=== PATIENT | female | born 1950 | race Caucasian/White ===

== ENCOUNTER → 2016-10-19 | Outpatient (CLI) | payer MEDICAID ==
--- NOTE | 2016-10-19 14:21 | MA ---
Screening Digital Mammogram With iCAD Analysis Clinical Indications: Routine screening. Her mother was diagnosed with breast cancer in her 80s. Technique: Standard cephalocaudal projections are obtained. Digital breast tomosynthesis was performe d in the MLO projection with reconstruction at 1.0 mm slice thickness and composite MLO views reconst ructed. This examination is processed by the iCAD computer aided detection system. Comparison: September 2015, September 2014, September 2013, August 2012, August 2011, July 2010, juan [email or web address]. Breast density: Type B; Scattered fibroglandular densities. Findings: CAD was reviewed. No spiculated masses, suspicious calcifications or secondary signs of mal ignancy are seen. There has been no significant change in the appearance of either breast. Impression: Negative mammogram. BI-RADS 1. Recommendation: Routine mammographic screening in one year as long as physical [facility]. Negative mammography should not preclude additional workup of a clinically suspicious finding. The patient's information is entered into a reminder system with a target due date for her next mammo gram.
== END ==
LOC: FIMAGING 11:18
DX: Z12.31 Encounter for screening mammogram for malignant neoplasm of breast (principal); Z80.3 Family history of malignant neoplasm of breast
CPT/HCPCS: G0202

== ENCOUNTER → 2017-10-20 | Outpatient (CLI) | payer OTHER, MEDICAID | LOC: FIMAGING 12:31 | PROVIDERS: ATTEND Family Medicine | DX: Z12.31 Encounter for screening mammogram for malignant neoplasm of breast (principal); Z80.3 Family history of malignant neoplasm of breast ==

== ENCOUNTER 2017-11-29 09:53 | Observation (INO) | payer OTHER, MEDICAID ==
[2017-11-29] MEDS ORDERED: DILTIAZEM 25 MG/5 ML VIAL IVP ONE (10:20)
[2017-11-29 10:26] LABS: PLATELET COUNT 274 10^3/uL (150-400)
--- NOTE | 2017-11-29 10:45 | EDPHY ---
H & P Smoking Status: Never smoked Time Seen by Provider: 11/29/17 10:09 HPI/ROS: CHIEF COMPLAINT: Cough, weakness HISTORY OF PRESENT ILLNESS: 67-year-old female presents to the emergency department with cough and weakness for the last 5 days. Patient states that she started with cough a few days ago and was progressively getting worse. She was feeling more weak. She does feel short of breath. She denies pain in her chest. Specifically she denies pleuritic chest pain. She denies neck or back pain. Denies abdominal pain or vomiting. She has had pneumonia treated as an outpatient several years ago. She did not receive a flu shot this year. REVIEW OF SYSTEMS: Constitutional: No fever, no chills. Eyes: No double or blurry vision. ENT: No sore throat. Respiratory: Cough, shortness of breath Cardiac: No chest pain. Gastrointestinal: No abdominal pain, vomiting or diarrhea. Genitourinary: No dysuria. Musculoskeletal: No neck or back pain. Skin: No rashes. Neurological: No headache. (Shauna Hughes) Past Medical/Surgical History: Bipolar, hypothyroidism, high cholesterol (Shauna Hughes) Social History: (Shauna Hughes) Physical Exam: General Appearance: Alert, no distress. 91% on room air. 155/91, 37.4 temp Eyes: Pupils equal and round. Extraocular motions are all intact. ENT: Mouth: Mucous membranes moist. Respiratory: Occasional rhonchi upper lobes bilaterally. Decreased breath sounds in the bases specially decreased breath sounds in the right base compared to the left. No respiratory distress. No retractions. Speaking in full sentences. Cardiovascular: Regular rate and rhythm. Gastrointestinal: Abdomen is soft and nontender, no masses, no rebound or guarding, bowel sounds normal. Neurological: Alert and oriented x 3, cranial nerves II through XII grossly intact Skin: Warm and dry, no rashes. Musculoskeletal: Nontender to palpate along the cervical, thoracic or lumbar spine. Neck is supple. Extremities: Full range of motion and no peripheral edema. Psychiatric: Patient is oriented X 3, there is no agitation. (Shauna Hughes) Constitutional: Initial Vital Signs Temperature (C) 37.3 C 11/29/17 09:55 Heart Rate 99 11/29/17 09:55 Respiratory Rate 18 11/29/17 09:55 Blood Pressure 155/91 H 11/29/17 09:55 O2 Sat (%) 91 L 11/29/17 09:55 O2 Delivery Mode Room Air Allergies/Adverse Reactions: No Known Allergies Allergy (Verified 11/29/17 09:54) Home Medications: Medication Instructions Recorded LORazepam [Ativan (*)] 0.5 mg PO HS PRN 11/29/17 Levothyroxine [Synthroid 88 mcg 88 mcg PO DAILY06 11/29/17 (*)] Perphenazine 4 mg PO DAILY 11/29/17 QUEtiapine FUMARATE [Seroquel 300 mg PO HS 11/29/17 300mg (*)] Suvorexant [Belsomra] 10 mg PO HS 11/29/17 Acetaminophen [Tylenol 325mg (*)] 650 mg PO Q4HRS PRN tab 11/30/17 Albuterol [Proventil Inhaler HFA 2 puffs IH Q4 PRN #1 mdi 11/30/17 (*)] Cetirizine [ZyrTEC 10 mg (*)] 10 mg PO HS #10 tab 11/30/17 Codeine Phosphate/Guaifenesin 10 ml PO Q4 PRN #200 ml 11/30/17 [Guaifen-Codeine 200-20 mg/10Ml] guaiFENesin [Mucinex 600 MG (*)] 1,200 mg PO BID #20 tab.er 11/30/17 Medical Decision Making - Diagnostics Imaging: I viewed and interpreted images myself - Diagnostics EKG Interpretation: EKG: Complete interpretation has been separately recorded in the [employer] archive. Summary impression: Sinus tachycardia, rate 100 (Suraj Londono) ED Course/Re-evaluation: 67-year-old female presents to the emergency department feeling short of breath. She had an outpatient chest x-ray which revealed evidence of likely pneumonia. She requires supplemental oxygen. She had blood cultures drawn. She had a normal lactate. The patient does take Seroquel for her history of bipolar. She had a normal EKG with no evidence of QT prolongation. She was started on Levaquin IV. She will be admitted to the hospitalist. Patient was also seen examined by Dr. Londono, secondary supervising physician. ( Shauna Hughes) Differential Diagnosis: Shortness of breath including but not limited to pulmonary infectious process, COPD, asthma, pulmonary embolus and congestive heart failure. (Shauna Hughes) Other Provider: Independent physician evaluation: I evaluated and participated in the management of the patient. I also evaluated the patient independently. My co-signature indicates that I have reviewed this chart and I agree with the findings and plan of care as documented. My personal H&P findings include: The patient presents to the ED with cough, dyspnea and hypoxemia which began on . The patient reported a subjective fever. She denies any recent antibiotic use. She denies travel outside the [place]. She denies pleuritic chest pain or asymmetric calf pain or swelling. The patient was seen in urgent care and had a chest x-ray which demonstrated pneumonia. She was sent to the ED secondary to her hypoxemia. Physician physical exam: General Appearance: Alert, no distress Eyes: Pupils equal and round no pallor or injection ENT, Mouth: Mucous membranes moist Respiratory: Tachypnea, rhonchorous breath sounds bilateral lung bases Cardiovascular: Tachycardic Gastrointestinal: Abdomen is soft and nontender, no masses, bowel sounds normal Neurological: A&O, normal motor function, normal sensory exam, normal cranial nerves Skin: Warm and dry, no rashes Musculoskeletal: Neck is supple nontender Extremities: symmetrical, full range of motion ED course: I reviewed the patient's chest x-ray. She does have clinical and radiographic evidence of pneumonia. Blood cultures x2 obtained. The patient will be started on IV antibiotics. She will be admitted to the hospital in a setting of her hypoxemia and tachypnea. (Suraj Londono) - Data Points Laboratory Results: Laboratory Results 11/29/17 10:15 11/29/17 10:15 Microbiology Results: MICROBIOLOGY 11/29/17 10:41 Nasal, Sinus - Swab Respiratory Panel (PCR) - Final Human Metapneumovirus Medications Given: Discontinued Medications Acetaminophen (Tylenol) 650 mg PO Q4HRS PRN PRN Reason: Pain, Mild/Fever, Can Take PO Stop: 05/28/18 13:02 Last Admin: 11/29/17 19:20 Dose: 650 mg Albuterol/Ipratropium (Duoneb) 3 ml IH Q6HRS MEHDI Stop: 05/29/18 12:04 Last Admin: 11/30/17 12:27 Dose: 3 ml Cetirizine HCl (Zyrtec) 10 mg PO HS MEHDI Stop: 05/28/18 20:59 Last Admin: 11/29/17 21:58 Dose: 10 mg Diltiazem HCl (Cardizem 25 Mg/5 Ml Vial) 20 mg IVP EDNOW ONE Stop: 11/29/17 10:21 Last Admin: 11/29/17 10:37 Dose: Not Given Enoxaparin Sodium (Lovenox) 40 mg SC DAILY MEHDI Stop: 05/29/18 08:59 Last Admin: 11/30/17 08:49 Dose: 40 mg Guaifenesin (Mucinex) 1,200 mg PO BID MEHDI Stop: 05/28/18 13:59 Last Admin: 11/30/17 08:49 Dose: 1,200 mg Guaifenesin/Codeine Phosphate (Robitussin Ac) 10 ml PO Q6HRS PRN PRN Reason: Cough, Moderate Stop: 05/28/18 13:56 Last Admin: 11/30/17 01:21 Dose: 10 ml Levofloxacin/Dextrose (Levaquin 750 Mg (Premix)) 150 mls @ 100 mls/hr IV EDNOW ONE PRN Reason: Protocol Stop: 11/29/17 13:21 Last Admin: 11/29/17 12:12 Dose: 150 mls Sodium Chloride (Ns) 1,000 mls @ 0 mls/hr IV ONCE ONE PRN Reason: Wide Open Stop: 11/29/17 14:20 Last Admin: 11/29/17 15:05 Dose: 1,000 mls Levothyroxine Sodium (Synthroid) 88 mcg PO DAILY06 [facility] Stop: 05/29/18 05:59 Last Admin: 11/30/17 05:29 Dose: 88 mcg Miscellaneous Medication (Suvorexant [Belsomra]) 10 mg PO HS MEHDI Stop: 05/28/18 20:59 Last Admin: 11/29/17 21:57 Dose: 10 mg Oxycodone HCl (Oxycodone Ir) 2.5 - 5 mg PO Q4HRS PRN PRN Reason: Pain, Severe Able to Take PO Stop: 12/09/17 13:57 Last Admin: 11/29/17 21:57 Dose: 5 mg Perphenazine (Trilafon) 4 mg PO DAILY MEHDI Stop: 05/29/18 08:59 Last Admin: 11/30/17 08:50 Dose: 4 mg Quetiapine Fumarate (Seroquel) 300 mg PO [facility] Stop: 05/28/18 20:59 Last Admin: 11/29/17 21:58 Dose: 300 mg Departure - Departure Disposition: [facility] In[facility] Acute Clinical Impression: Pneumonia Qualifiers: Pneumonia type: due to unspecified organism Laterality: bilateral Lung location : lower lobe of lung Qualified Code(s): J18.9 - Pneumonia, unspecified organism Dyspnea Qualifiers: Dyspnea type: unspecified Qualified Code(s): R06.00 - Dyspnea, unspecified Condition: Fair
--- NOTE | 2017-11-29 11:20 | CPEKG ---
Heart Rate: 100 RR Interval: 600 P-R Interval: 172 QRSD Interval: 66 QT Interval: 356 QTC Interval: 460 P Mcgregor: 57 QRS Mcgregor: 39 T Wave Mcgregor: 56 EKG Severity - OTHERWISE NORMAL ECG - EKG Impression: SINUS TACHYCARDIA Electronically Signed By: Suraj Londono 29-Nov-2017 11:53:11
[2017-11-29] MEDS ORDERED: ONDANSETRON 4 MG/2 ML VIAL IVP PRN (13:03)
[2017-11-29] MEDS ORDERED: ONDANSETRON DISINTEGRATING 4 MG TAB PO PRN (13:03)
[2017-11-29] MEDS ORDERED: ALBUTEROL 3 ML DEYVIAL IH PRN (13:03)
[2017-11-29] MEDS: ACETAMINOPHEN 325 MG TAB PO PRN ×2 (13:25→19:20)
[2017-11-29] MEDS ORDERED: LORazepam 0.5 MG TAB PO PRN (13:57)
[2017-11-29] MEDS ORDERED: BENZONATATE 100 MG CAP PO PRN (13:57)
[2017-11-29] MEDS ORDERED: NS 1,000 ML IV ONE (14:19)
[2017-11-29] MEDS: guaiFENesin 600 MG TAB.ER PO SCH ×2 (15:04→21:58)
[2017-11-29] MEDS: oxyCODONE IR 5 MG TAB PO PRN ×2 (16:09→21:57)
--- NOTE | 2017-11-29 17:15 | PDGENHP ---
History and Physical - Chief Complaint Acute cough - History of Present Illness Primary care provider: Dr. Dunn HPI: 67-year-old female presents with acute cough characterized as productive of clear sputum with associated sinus congestion, shortness of breath, pain in her chest located in the anterior chest, exacerbated by coughing. She reports the onset of symptoms was 3 days ago, and duration has been persistent worsening thereafter. Prior to her onset of symptoms, the patient otherwise been feeling well. She reports that she is normally an active person, ambulates and walks her dogs without any recent reduction in exercise tolerance , no anginal chest discomfort or shortness of breath. She reports that she has been taking [id number] medications in an attempt to alleviate the symptoms , and Delsym seems to provide some relief. History Information - Allergies/Home Medication List Allergies/Adverse Reactions: No Known Allergies Allergy (Verified 11/29/17 09:54) Home Medications: LORazepam [Ativan (*)] 0.5 mg PO HS PRN 11/29/17 [Last Taken 11/28/17] Levothyroxine [Synthroid 88 mcg (*)] 88 mcg PO DAILY06 11/29/17 [Last Taken 02/11] Perphenazine 4 mg PO DAILY 11/29/17 [Last Taken 11/29/17] QUEtiapine FUMARATE [Seroquel 300mg (*)] 300 mg PO HS 11/29/17 [Last Taken 11/28] Suvorexant [Belsomra] 10 mg PO HS 11/29/17 [Last Taken 11/28/17] I have personally reviewed and updated: family history, medical history, social history, surgical history - Past Medical History Additional medical history: Recurrent cystitis. Bipolar with history of numerous ECT treatments. Hypothyroidism. Hyperlipidemia - Surgical History Reports: no pertinent surgical hx - Family History Additional family history: Sister with fatal pulmonary embolism, mother with breast cancer, father with congestive heart failure in his 80s - Social History Smoking Status: Never smoked Alcohol Use: Sober Drug Use: None, Marijuana Additional social history: Independent in her ADLs comma no recent reduction in exercise tolerance, recently return from a trip to [place] 2 weeks ago Review of Systems Review of Systems: ROS: 10pt was reviewed & negative except for what was stated in HPI & below Constitutional: Reports: malaise EENMT: Reports: nose congestion, other (Conjunctivitis 2 weeks ago) Cardiac: Reports: chest pain (Anterior chest) Respiratory: Reports: cough, shortness of breath Physical Exam Physical Exam: Temp Pulse Resp BP Pulse Ox 36.5 C 104 H 20 148/95 H 94 11/29/17 15:52 11/29/17 15:52 11/29/17 15:52 11/29/17 15:52 11/29/17 15:52 O2 (L/minute) 1 Constitutional: appears nourished, not in pain, obese, uncomfortable Eyes: PERRL, anicteric sclera, EOMI Ears, Nose, Mouth, Throat: moist mucous membranes, hearing normal, ears appear normal, no oral mucosal ulcers Cardiovascular: tachycardia, No systolic murmur, No irregularly irregular, No edema Respiratory: inspiratory crackles (Bilateral bases), other (Cough easily triggered), No reduced air movement, No expiratory wheeze, No bronchial breath sounds, No respiratory distress Gastrointestinal: normoactive bowel sounds, soft, non-tender abdomen, no palpable masses, No distension Skin: No abrasion (On the anterior chest), No rash Neurologic: AAOx3, sensation intact bilaterally, No weakness Psychiatric: interacting appropriately, not anxious, not encephalopathic, thought process linear Lymph, Heme, Immunologic: other (Palpable, nontender 1 cm bilateral submandibular lymph nodes, no anterior posterior cervical lymphadenopathy) Lab Data & Imaging Review 11/29/17 10:15 11/29/17 10:15 WBC 9.34 10^3/uL (3.80-9.50) 11/29/17 10:15 RBC 4.25 10^6/uL (4.18-5.33) 11/29/17 10:15 Hgb 13.0 g/dL (12.6-16.3) 11/29/17 10:15 Hct 38.8 % (38.0-47.0) 11/29/17 10:15 MCV 91.3 fL (81.5-99.8) 11/29/17 10:15 MCH 30.6 pg (27.9-34.1) 11/29/17 10:15 MCHC 33.5 g/dL (32.4-36.7) 11/29/17 10:15 RDW 13.2 % (11.5-15.2) 11/29/17 10:15 Plt Count 274 10^3/uL (150-400) 11/29/17 10:15 MPV 9.0 fL (8.7-11.7) 11/29/17 10:15 Neut % (Auto) 76.8 % (39.3-74.2) H 11/29/17 10:15 Lymph % (Auto) 12.2 % (15.0-45.0) L 11/29/17 10:15 [place] % (Auto) 7.1 % (4.5-13.0) 11/29/17 10:15 Eos % (Auto) 2.2 % (0.6-7.6) 11/29/17 10:15 Baso % (Auto) 0.7 % (0.3-1.7) 11/29/17 10:15 Nucleat RBC Rel Count 0.0 % (0.0-0.2) 11/29/17 10:15 Absolute Neuts (auto) 7.17 10^3/uL (1.70-6.50) H 11/29/17 10:15 Absolute Lymphs (auto) 1.14 10^3/uL (1.00-3.00) 11/29/17 10:15 Absolute Monos (auto) 0.66 10^3/uL (0.30-0.80) 11/29/17 10:15 Absolute Eos (auto) 0.21 10^3/uL (0.03-0.40) 11/29/17 10:15 Absolute Basos (auto) 0.07 10^3/uL (0.02-0.10) 11/29/17 10:15 Absolute Nucleated RBC 0.00 10^3/uL (0-0.01) 11/29/17 10:15 Immature Gran % 1.0 % (0.0-1.1) 11/29/17 10:15 Immature Gran # 0.09 10^3/uL (0.00-0.10) 11/29/17 10:15 D-Dimer 0.60 ug/mLFEU (0.00-0.50) H 11/29/17 14:54 VBG Lactic Acid 0.8 mmol/L (0.7-2.1) 11/29/17 11:25 Sodium 139 mEq/L (135-145) 11/29/17 10:15 Potassium 3.8 mEq/L (3.5-5.2) 11/29/17 10:15 Chloride 102 mEq/L (97-110) 11/29/17 10:15 Carbon Dioxide 25 mEq/l (22-31) 11/29/17 10:15 Anion Gap 12 mEq/L (8-16) 11/29/17 10:15 BUN 12 mg/dL (7-23) 11/29/17 10:15 Creatinine 0.7 mg/dL (0.6-1.0) 11/29/17 10:15 Estimated GFR > 60 11/29/17 10:15 Glucose 108 mg/dL (70-100) H 11/29/17 10:15 Calcium 9.3 mg/dL (8.5-10.4) 11/29/17 10:15 Troponin I < 0.012 ng/mL (0.000-0.034) 11/29/17 14:25 NT-Pro-B Natriuret Pep 169 pg/mL (0-125) H 11/29/17 14:25 Visualized and Interpreted Chest x-ray results: Yes Chest X-Ray results: other (Bibasilar inferior airspace disease) Visualized and Interpreted EKG results: Yes EKG Interpretation: Positive for: other (Sinus tachycardia) Assessment & Plan Assessment: 67-year-old female presenting with acute metapneumovirus viral pneumonia Plan: 1. Metapneumovirus viral pneumonia. Acute, new problem this provider, further workup indicated. Present on admission, the etiology of the patient's presenting symptoms are most likely secondary to this unifying diagnosis and should respond to supportive care -that being said, the patient's ongoing tachycardia, strong family history of venous thromboembolism, and recent travel, warrant pulmonary embolism rule out and will get a D-dimer at this time, if it is negative for age adjustment, we will not pursue further imaging -supportive care with mucolytics, antiemetics, antihistamine, bronchodilator therapy, antitussives -discussed with Shauna Lance, emergency department provider, she reports to me the patient has received levofloxacin, given that the respiratory viral panel has demonstrated human metapneumovirus, there is no indication for ongoing antibiotics -continue monitor pulmonary exam, as human metapneumovirus can cause extensive bilateral pneumonia, the patient does have evidence of bilateral lower lobe infiltrates on chest x-ray, monitor oxygen requirements overnight and reassess whether the patient is safe for discharge home without supplemental oxygen tomorrow 2. Hypothyroidism. Continue home medication 3. Bipolar disease. Reviewed outside records including 06/26/[address] Antelmo Grove, reports patient's past medical history as well as her need for ECT therapy -continue home medications Diet. Regular Prophylaxis. High risk patient, Lovenox 40 Code. Full Disposition. Anticipated discharge is 11/30, pending stabilization of conditions outlined above.
[2017-11-29] MEDS: guaiFENesin/CODEINE PHOS 10 ML UDCUP PO PRN (19:20)
[2017-11-29] MEDS ORDERED: CETIRIZINE 10 MG TAB PO SCH (21:00)
[2017-11-29] MEDS ORDERED: Suvorexant [Belsomra] 10 MG PO SCH (21:00)
[2017-11-29] MEDS ORDERED: QUEtiapine FUMARATE 300 MG TAB PO SCH (21:00)
[2017-11-30] MEDS: guaiFENesin/CODEINE PHOS 10 ML UDCUP PO PRN (01:21)
[2017-11-30] MEDS ORDERED: PERPHENAZINE 8 MG TAB ONE (05:25)
[2017-11-30] MEDS: PERPHENAZINE 8 MG TAB PO SCH ×2 (05:30→08:50)
[2017-11-30 05:43] LABS: PLATELET COUNT 273 10^3/uL (150-400)
[2017-11-30] MEDS ORDERED: LEVOTHYROXINE 88 MCG TAB PO SCH (06:00)
[2017-11-30] MEDS: guaiFENesin 600 MG TAB.ER PO SCH (08:49)
[2017-11-30] MEDS ORDERED: ENOXAPARIN 40 MG/0.4 ML SYR SC SCH (09:00)
[2017-11-30] MEDS ORDERED: IPRATROPIUM/ALBUTEROL 3 ML DEYVIAL IH SCH (12:05)
--- NOTE | 2017-11-30 13:06 | PDHOMEO2F ---
Home Oxygen Face to Face Home Orders: I certify that a physician or a nurse practitioner or physician's bilingual sales assistant has had a wiqe-gr-henk encounter with this patient on the date of this order due to the diagnosis listed, which relates to the primary reason the patient requires home oxygen. Alternative treatments have been tried, or considered, and deemed ineffective. It is anticipated that supplemental oxygen will result in improvement with treatment. Home oxygen qualifying diagnosis: Human metapneumovirus viral pneumonia SpO2 on room air (%): 87 Frequency of home oxygen needed: continuous Home oxygen liters per minute: 2 Home oxygen delivery device: nasal cannula Concentrator: Yes E-tanks for mobility and back up: Yes If ordering portable O2, is the patient mobile in the home?: Yes I certify that, based on these findings, the home oxygen is medically necessary for this patient for the following length of time. Length of time home oxygen needed: 1 month
--- NOTE | 2017-11-30 13:19 | ASMTCASEMG ---
Living Arrangements What is your living Answers: With Partner arrangement? Who do you live with? Type Of Residence What kind of residence do Answers: House you live in? Discharge Plan Comments Coordination Status Comments Notes: Pt is a 67 y/o female admitted for PNA. Pt will most likely d/c independent when medically stable. No therapies ordered at this time. CM available for changes. Plan: Independent Date Signed: 11/30/2017 01:18 PM Electronically Signed By:KLAUDIA Rose
[2017-11-30 15:06] VITALS: BP 123/79; PULSE 92; RESP 16; TEMP 99; O2SAT 93
--- NOTE | 2017-11-30 22:15 | PDDCSUM ---
Discharge Summary Discharge Summary: Date of Admission: 11/29/17 Date of Discharge: 11/30/17 Discharge Diagnoses: 1. Human Metapneumovirus Viral Pneumonia Procedure: Chest x-ray x 2, interstitial pulm markings Consult: None Labs: WBC 9,000, Cr 0.6, ALT 60, ALT 140, Alk Phos 90, K 3.6 Physical Exam: SpO 87% on room air at rest, lung clear bilat, HR 100, SBP 130, Afeb, no LE edema Hospital Course: Ms. Gates p/w acute pulmonary symptoms 2/2 metapneumovirus, resulting in viral pneumonia on CXR. She received supportive care w/ duonebs, mucolytics, antitussives, and IVF. She felt significantly better on 11/30/17, and was safely discharged on supplemental oxygen. She will use a PRN albuterol inhaler if she experiences any wheezing or intractible cough. Her transaminitis is 2/2 viral pneumonia, and antibiotics are not indicated. Discharge medications: please see official discharge medication reconciliation sheet in chart; of note, terrence mucinex 1200 bid, PRN guaif/codeine 10ml, PRN albuterol inhaler Discharge instructions: please follow-up w/ PCP within several days.
== END 2017-11-30 16:37 | disposition home or self-care (01) ==
LOC: INTOOBSV 12:21 → F3E 12:57
PROVIDERS: ADMIT Internal Medicine; ATTEND Internal Medicine
DX: J12.9 Viral pneumonia, unspecified (principal); B97.81 Human metapneumovirus as the cause of diseases classified elsewhere; F31.9 Bipolar disorder, unspecified; E03.9 Hypothyroidism, unspecified; E78.00 Pure hypercholesterolemia, unspecified
CPT/HCPCS: 71045; 93005; G0378; J1650; J1956; 96365

== ENCOUNTER → 2017-11-29 | Outpatient (CLI) | payer OTHER, MEDICAID | LOC: GIMAGING 08:35 | PROVIDERS: ATTEND Registered Nurse | DX: J81.0 Acute pulmonary edema (principal); J90 Pleural effusion, not elsewhere classified | CPT/HCPCS: 71046-PO ==

== ENCOUNTER → 2018-04-11 | Outpatient (CLI) | payer OTHER, MEDICAID | LOC: BMCIMAGING 11:19 | PROVIDERS: ATTEND Family Medicine | DX: M19.012 Primary osteoarthritis, left shoulder (principal) ==

== ENCOUNTER 2018-11-25 04:14 | Emergency (ER) | payer OTHER, MEDICAID ==
[2018-11-25] MEDS ORDERED: LORazepam 0.5 MG TAB PO ONE (04:33)
--- NOTE | 2018-11-25 04:52 | EDPHY ---
H & P Stated Complaint: ANXIETY Time Seen by Provider: 11/25/18 04:25 HPI/ROS: Chief Complaint: Anxiety HPI: 68-year-old woman with a history of bipolar disorder and anxiety. Patient normally takes Seroquel and has been taking lorazepam. Patient ran out of her Seroquel and lorazepam 2 days ago. She states that her psychiatrist does not want to renew her lorazepam as she wants her to engage in the therapy instead. Patient states that her is out of town. She has a prescription for her cervical waiting for her today. She is coming to the emergency department this morning with increasing anxiety. She is also complaining of depression. Denies suicidal ideation. No hallucinations. Denies any other ingestions. No fevers or chills. No cough. No chest pain or shortness of breath. She has otherwise been compliant with her usual medications. ROS: 10 systems were reviewed and were negative except those elements noted in the HPI. PMH: Bipolar disorder, anxiety Social History: No smoking, no alcohol, no recreational drug use Family History: non-contributory Physical Exam: Gen: Awake, Alert, anxious appearing HEENT: Nose: no rhinorrhea Eyes: PERRLA, EOMI Mouth: Moist mucosa Neck: Supple, no JVD Chest: nontender, lungs clear to auscultation Heart: S1, S2 normal, no murmur Abd: Soft, non-tender, no guarding Back: no CVA tenderness, no midline tenderness Ext: no edema, non-tender Skin: no rash Neuro: CN II-XII intact, Sensation grossly intact, Strength 5/5 in bilateral upper and lower extremities - Personal History Current Tetanus Diphtheria and Acellular Pertussis (TDAP): No Tetanus Vaccine Date: 2010 - Medical/Surgical History Hx Asthma: No Hx Chronic Respiratory Disease: No Hx Diabetes: No Hx Cardiac Disease: No Hx Renal Disease: No Hx Cirrhosis: No Hx Alcoholism: No Hx HIV/AIDS: No Hx Splenectomy or Spleen Trauma: No Other PMH: medical - bipolar, hypothyroid, high chol, ANXIETY. surgery -none - Social History Smoking Status: Never smoked Constitutional: Initial Vital Signs Temperature (C) 36.6 C 11/25/18 04:14 Heart Rate 94 11/25/18 04:14 Respiratory Rate 16 11/25/18 04:14 Blood Pressure 181/129 H 11/25/18 04:14 O2 Sat (%) 95 11/25/18 04:14 O2 Delivery Mode Room Air Allergies/Adverse Reactions: No Known Allergies Allergy (Verified 11/29/17 09:54) Home Medications: Medication Instructions Recorded LORazepam [Ativan (*)] 0.5 mg PO HS PRN 11/29/17 Levothyroxine [Synthroid 88 mcg 88 mcg PO DAILY06 11/29/17 (*)] QUEtiapine FUMARATE [Seroquel 300 mg PO HS 11/29/17 300mg (*)] Hydroxyzine HCl 11/25/18 Medical Decision Making ED Course/Re-evaluation: 68-year-old woman with a history of bipolar disorder and anxiety presenting with anxiety after running out of her Seroquel and lorazepam. Patient is feeling improved after 0.5 mg of lorazepam. She is not suicidal. She is pan for safety. She is feeling much better. She has a prescription for cervical waiting for her in the pharmacy today. Plan will be for discharge with follow-up with her psychiatrist, she will be able to picker feeder her Seroquel prescription today. Patient continue complain of anxiety. I have given her dose of Seroquel 400. - Data Points Medications Given: Discontinued Medications Lorazepam (Ativan) 0.5 mg PO EDNOW ONE Stop: 11/25/18 04:34 Last Admin: 11/25/18 04:37 Dose: 0.5 mg Quetiapine Fumarate (Seroquel) 400 mg PO EDNOW ONE Stop: 11/25/18 06:03 Last Admin: 11/25/18 06:03 Dose: 400 mg Departure - Departure Disposition: Home, Routine, Self-Care Clinical Impression: Anxiety Condition: Good Instructions: Anxiety (ED) Additional Instructions: Make sure to picker feeder your Seroquel prescription today and resume your usual medications. Follow up with her psychiatrist in 1-2 days for further evaluation. Return to the emergency department for increasing anxiety, depression, suicidal thoughts, or any other concerns. Referrals: Sandy Dunn MD [Primary Care Provider] - As per Instructions
[2018-11-25] MEDS ORDERED: QUEtiapine FUMARATE 200 MG TAB PO ONE (06:02)
[2018-11-25] MEDS ORDERED: QUEtiapine FUMARATE 200 MG TAB ONE (06:02)
[2018-11-25 07:43] VITALS: BP 142/94
== END 2018-11-25 08:05 | disposition home or self-care (01) ==
LOC: EDUNIT#
DX: F41.9 Anxiety disorder, unspecified (principal); E03.9 Hypothyroidism, unspecified; Z79.899 Other long term (current) drug therapy

== ENCOUNTER → 2018-12-15 | Outpatient (CLI) | payer OTHER, MEDICAID | LOC: FIMAGING 12:03 | PROVIDERS: ATTEND Family Medicine | DX: Z12.31 Encounter for screening mammogram for malignant neoplasm of breast (principal); Z80.3 Family history of malignant neoplasm of breast ==

== ENCOUNTER 2019-01-07 21:14 | Emergency (ER) | payer OTHER, MEDICAID ==
--- NOTE | 2019-01-07 22:12 | EDPHY ---
H & P Time Seen by Provider: 01/07/19 21:43 HPI/ROS: Chief complaint. Cough HPI. 68-year-old female with cough for 3 days. Cough is productive of clear to yellow sputum. No fever. Recent travel to [place] returning 3 days ago. She notes there was a lot of coughing on the plane while traveling. No shortness of breath or chest pain. No abdominal pain or vomiting or diarrhea. Patient has a history of pneumonia is concerned that she may be developing pneumonia. No unusual leg pain or swelling ROS 10 systems were reviewed and negative with the exception of the elements mentioned in the history of present illness Past Medical/Surgical History: Bipolar illness, hypothyroid, dyslipidemia, anxiety Social History: , nonsmoker, no alcohol Smoking Status: Never smoked Physical Exam: General Appearance: Alert well-developed female mild distress vital signs significant for O2 saturation 91-92% on room air Eyes: Pupils equal and round no pallor or injection. ENT, tympanic membranes are normal. Pharynx mildly injected without exudate Respiratory: No retractions. Mild inspiratory expiratory rhonchi Cardiovascular: Regular rate and rhythm. Gastrointestinal: Abdomen is soft and nontender, no masses, bowel sounds normal. Neurological: Awake and alert, sensory and motor exams grossly normal. Skin: Warm and dry, no rashes. Musculoskeletal: Neck is supple nontender. Extremities symmetrical, full range of motion. Psychiatric: Patient is oriented X 3, there is no agitation. Constitutional: Initial Vital Signs Temperature (C) 37.3 C 01/07/19 21:22 Heart Rate 96 01/07/19 21:22 Respiratory Rate 16 01/07/19 21:22 Blood Pressure 120/89 H 01/07/19 21:22 O2 Sat (%) 91 L 01/07/19 21:22 O2 Delivery Mode Room Air Allergies/Adverse Reactions: No Known Allergies Allergy (Verified 01/07/19 21:26) Home Medications: Medication Instructions Recorded LORazepam [Ativan (*)] 0.5 mg PO HS PRN 11/29/17 Levothyroxine [Synthroid 88 mcg 88 mcg PO DAILY06 11/29/17 (*)] QUEtiapine FUMARATE [Seroquel 300 mg PO HS 11/29/17 300mg (*)] Belsomra 01/07/19 Medical Decision Making - Diagnostics Imaging Results: Imaging Impressions Chest X-Ray 01/07/19 21:44 Impression: 1. Mild chronic airways disease. No pneumonia or edema. 2. Chronic trace bilateral pleural effusions versus chronic bibasilar scarring. Chest x-ray interpreted by me shows no evidence for pneumonia. Mild airway disease ED Course/Re-evaluation: Re-evaluation by me at 10:15 p.m.. Patient is stable. She and I discussed imaging study results, treatment plan including criteria for return and importance of follow-up and further evaluation. She expresses understanding and agreement Differential Diagnosis: This appears to be bronchitis. I considered pneumonia and bacterial infection as well. Departure - Departure Disposition: Home, Routine, Self-Care Clinical Impression: Acute bronchitis Qualifiers: Bronchitis organism: unspecified organism Qualified Code(s): J20.9 - Acute bronchitis, unspecified Condition: Good Instructions: Acute Bronchitis (ED) Additional Instructions: Drink plenty of fluids and stay hydrated Try to get plenty of rest Albuterol inhaler using 2 puffs every 4 hr while awake for cough and breathing Return for worsening symptoms Recheck in 2-3 days if not improved Referrals: Sandy Dunn MD [Primary Care Provider] - 2-3 days, if not improved
[2019-01-07] MEDS ORDERED: ALBUTEROL INH PREPACK MDI TAKEHOME ONE (22:17)
[2019-01-07 22:33] VITALS: BP 129/103
== END 2019-01-07 22:33 | disposition home or self-care (01) ==
DX: J20.9 Acute bronchitis, unspecified (principal); E03.9 Hypothyroidism, unspecified; Z87.01 Personal history of pneumonia (recurrent)

== ENCOUNTER 2019-02-01 14:42 | Emergency (ER) | payer OTHER, MEDICAID ==
[2019-02-01] MEDS ORDERED: NS 1,000 ML IV ONE (15:03)
[2019-02-01] MEDS ORDERED: DIAZEPAM 10 MG/2 ML SYR IVP ONE (15:12)
--- NOTE | 2019-02-01 15:18 | EDPHY ---
H & P Time Seen by Provider: 02/01/19 14:59 HPI/ROS: HPI Anxiety. Out of Ativan. 68-year-old female by ambulance. This patient has a history of anxiety. She is prescribed 10, 1 mg Ativan tablets per month to be taken as needed for her anxiety. She has prescribed Ativan by her psychiatrist at [facility]. She reports that she ran out of her Ativan about 3 days ago. She reports that last night she felt very anxious and was not able to sleep all night. She reports that this has escalated through the day to a fall on panic attack. She then called an ambulance to bring her to the hospital because she did not have transport here. She denies any other complaint. She has had anxiety attacks similar to this in the past related to benzodiazepine withdrawal. She denies any history of alcohol abuse. She states that she took her Synthroid as prescribed this morning. She also reports that she took her prescribed dose of Seroquel. ROS: Constitutional: No fever, no chills. As above. Eyes: No discharge. No changes in vision. ENT: No sore throat. No nasal congestion or rhinorrhea. Respiratory: No cough. No shortness of breath. Cardiac: No chest pain, no palpitations. Gastrointestinal: No abdominal pain, no vomiting, no diarrhea. Genitourinary: No hematuria. No dysuria or increased frequency with urination. Musculoskeletal: No back pain. No neck pain. No myalgias or arthralgias. Skin: No rashes. Neurological: No headache. No focal weakness or altered sensation. Past medical history: Anxiety, bipolar, hypothyroid, hyperlipidemia. [facility] client as above. Social history: She currently is living alone but is . She has a daughter who is a therapist for [facility]. She denies any alcohol. She does not smoke. No IV drugs or street drugs. Physical Exam: General Appearance: Alert, mildly anxious. This patient is responding to questions appropriately and in full sentences. This patient appears well- hydrated and well-nourished. Eyes: Pupils equal and round no pallor or injection. No lid edema, erythema or injection. Respiratory: There are no retractions, lungs are clear to auscultation with good air movement bilaterally. Cardiovascular: Regular rate and rhythm. Tachycardia. No murmur. Gastrointestinal: Abdomen is soft and nontender, no masses, bowel sounds normal. No focal tenderness at McBurney's point. No Pino sign. Neurological: Motor sensory function is grossly intact. Cranial nerves are normal. Gait is normal. Mild resting tremor. Skin: Warm and dry, no rashes. Musculoskeletal: Neck is supple and nontender. Extremities are symmetrical. All joints range without pain or impingement. Psychiatric: No agitation. No depression. Database: EKG: EKG time is 3:51 p.m.; EKG shows a narrow complex sinus tachycardia with a ventricular rate of 126. The CT, QRS, QT intervals are within normal limits. There are no ST-T wave changes indicative of ischemic or injury pattern. No evidence of right heart strain. Interpreted by me. Imaging: Procedures: Emergency department course: IV was established by EMS. They started her on IV normal saline. On my evaluation of the patient she is almost through with 1 L of IV normal saline. She was placed on a pvc monitor. She is sleepy but at the same time anxious. She reports that she did not sleep at all last night because of her anxiety. I will check a TSH. She will also be given 5 mg of IV Valium initially for her anxiety. 3:45 p.m., the patient was re-evaluated, she appears more comfortable and sleepy but remains tachycardic between 110 and 120. This is a narrow complex sinus tachycardia. I again asked her about medications prior to arrival. She states that she only took Seroquel and her Synthroid. She will be given an additional 500 cc of IV normal saline. Blood work including ethanol and UDS will be ordered as well as an EKG obtained. 4:30 p.m., the patient was up and ambulatory to the bathroom without assistance. She remains tachycardic at 115. She appears more relaxed. 5:15 p.m., the patient was re-evaluated. Repeat neurologic Assessment is nonfocal. She still remains mildly tachycardic at 110. She is subtherapeutic on her Synthroid. I discussed admission with her. She does not want to be admitted. She does have a follow-up appointment with her primary care physician , Dr. Dunn, tomorrow morning. I then spoke with her daughter, Crystal, who is very familiar with the patient's condition. She tells me that she feels comfortable with the patient being discharged to home that she will come to the emergency department to pick the patient up. Crystal is a therapist with [facility]. Crystal will also ensure that the patient gets to her primary care physician appointment tomorrow. Crystal is aware that the patient is significantly subtherapeutic on her Synthroid. This will be addressed by her primary care physician. Lives also tells me that this is a typical cycle with her mother. She has a history of benzodiazepine abuse and when she cannot get her benzodiazepine she takes more Seroquel that she is prescribed trying sleep. The patient is not suicidal. Given that her daughter will come and pick her up and that her daughter is well aware of her conditions and will oversee her follow-up feel it is reasonable for the patient to be discharged to home. 6:00 p.m., the patient's daughter is at the bedside. On re-evaluation of the patient she is sitting upright in the gurney. She is responding to questions appropriately and in full sentences. She has been up and ambulatory with a normal gait to the bathroom. Repeat neurologic Assessment is nonfocal. I stressed the importance that she only takes her prescription medications as prescribed. I again assessed both the patient and her comfort level with the patient being discharged. They both feel comfortable with this plan. Her daughter Crystal will insure that the patient follows up with her primary care physician as scheduled tomorrow. The patient's remaining emergency department course under my care has been uneventful. The patient was discharged in good condition with her daughter. Differential Diagnosis: The differential diagnosis on this patient includes but is not limited to anxiety reaction, panic attack, benzodiazepine withdrawal. Alcohol withdrawal, hyperthyroid state, sympathomimetic toxidrome unlikely. This represents a partial list of diagnoses considered. These considerations are based on history , physical exam, past history, reassessment and diagnostic testing. Smoking Status: Never smoked Constitutional: Initial Vital Signs Temperature (C) 36.8 C 02/01/19 14:47 Heart Rate 123 H 02/01/19 14:47 Respiratory Rate 18 02/01/19 14:47 Blood Pressure 170/109 H 02/01/19 14:47 O2 Sat (%) 93 02/01/19 14:47 O2 Delivery Mode Room Air O2 (L/minute) 3 Allergies/Adverse Reactions: No Known Allergies Allergy (Verified 02/01/19 14:47) Home Medications: Medication Instructions Recorded LORazepam [Ativan (*)] 0.5 mg PO HS PRN 11/29/17 Levothyroxine [Synthroid 88 mcg 88 mcg PO DAILY06 11/29/17 (*)] QUEtiapine FUMARATE [Seroquel 300 mg PO HS 11/29/17 300mg (*)] Belsomra 01/07/19 Medical Decision Making - Data Points Laboratory Results: Laboratory Results 02/01/19 15:25 02/01/19 15:25 Medications Given: Discontinued Medications Diazepam (Valium) 5 mg IVP EDNOW ONE Stop: 02/01/19 15:13 Last Admin: 02/01/19 15:27 Dose: 5 mg Sodium Chloride (Ns) 1,000 mls @ 0 mls/hr IV EDNOW ONE; Wide Open PRN Reason: Protocol Stop: 02/01/19 15:04 Last Admin: 02/01/19 15:26 Dose: 1,000 mls Sodium Chloride (Ns) 500 mls @ 0 mls/hr IV ONCE ONE; Wide Open PRN Reason: Protocol Stop: 02/01/19 15:52 Last Admin: 02/01/19 15:55 Dose: 500 mls Departure - Departure Disposition: Home, Routine, Self-Care Clinical Impression: Benzodiazepine withdrawal, Anxiety reaction, Hypothyroidism Condition: Good Instructions: Anxiety (ED) Additional Instructions: Read and follow provided instructions. Follow-up with your primary care physician as scheduled tomorrow without fail for re-evaluation. Your thyroid hormone levels are very low in this needs to be addressed by your primary care physician. Take your prescription medicine only as prescribed. Return to the emergency department for worsening symptoms or other serious concerns. Referrals: Sandy Dunn MD [Primary Care Provider] - As per Instructions
[2019-02-01 15:50] LABS: PLATELET COUNT 287 10^3/uL (150-400)
[2019-02-01] MEDS ORDERED: NS 500 ML IV ONE (15:51)
[2019-02-01 18:22] VITALS: BP 147/81
[2019-02-02] MEDS ORDERED: IOPAMIDOL (ISOVUE-300) 100 ML BTL ONE (09:26)
--- NOTE | 2019-02-02 10:35 | ASMTCMCOM ---
CM Note CM Note Notes: Follow up call to patient and her daughter Crystal. See ER report for details of patient visit. This CM spoke with Crystal who confirms that patient has a follow up appointment with her PCP, Dr. Dunn and that she (Crystal) will be following up with Dr. Dunn in regard to patient's ER visit. CM available prn for further needs Date Signed: 02/02/2019 10:34 AM Electronically Signed By:Samara Nevarez RN
--- NOTE | 2019-02-02 20:58 | CPEKG ---
Test Reason : OPEN Blood Pressure : / mmHG Vent. Rate : 126 BPM Atrial Rate : 126 BPM P-R Int : 141 ms QRS Dur : 071 ms QT Int : 327 ms P-R-T Axes : 009 025 015 degrees QTc Int : 474 ms Sinus tachycardia Probable anteroseptal infarct, old Confirmed by Mey Day ([id number]) on 02/02/2019 8:57:31 PM Referred By: Mey Day Confirmed By:Mey Day
== END 2019-02-01 18:27 | disposition home or self-care (01) ==
LOC: EDUNIT#
DX: F19.230 Other psychoactive substance dependence with withdrawal, uncomplicated (principal); F41.1 Generalized anxiety disorder; E03.9 Hypothyroidism, unspecified; E86.9 Volume depletion, unspecified
CPT/HCPCS: 93005; 96361; 96374; 99284; J3360; 80305; G0480; Q9967

== ENCOUNTER 2019-02-23 04:14 | Emergency (ER) | payer OTHER, MEDICAID | END 2019-02-23 05:17 | disposition home or self-care (01) ==

== ENCOUNTER 2019-02-23 09:33 | Inpatient (IN) | payer OTHER ==
--- NOTE | 2019-02-23 09:42 | EDPHY ---
H & P Stated Complaint: anxiety SI - Personal History Current Tetanus/Diphtheria Vaccine: Yes Current Tetanus Diphtheria and Acellular Pertussis (TDAP): Yes Tetanus Vaccine Date: 2010 - Medical/Surgical History Hx Asthma: No Hx Chronic Respiratory Disease: No Hx Diabetes: No Hx Cardiac Disease: No Hx Renal Disease: No Hx Cirrhosis: No Hx Alcoholism: No Hx HIV/AIDS: No Hx Splenectomy or Spleen Trauma: No Other PMH: medical - bipolar, hypothyroid, high chol, ANXIETY - Social History Smoking Status: Never smoked Time Seen by Provider: 02/23/19 09:41 Constitutional: Initial Vital Signs Temperature (C) 37 C 02/23/19 09:39 Heart Rate 105 H 02/23/19 09:39 Respiratory Rate 24 H 02/23/19 09:39 Blood Pressure 174/120 H 02/23/19 09:39 O2 Sat (%) 91 L 02/23/19 09:39 O2 Delivery Mode Room Air Allergies/Adverse Reactions: No Known Allergies Allergy (Verified 02/23/19 09:38) Home Medications: Medication Instructions Recorded QUEtiapine FUMARATE [Seroquel 600 mg PO HS 11/29/17 300mg (*)] Atorvastatin Calcium [Lipitor 20 20 mg PO DAILY 02/23/19 mg (*)] LORazepam [Ativan (*)] 1 mg PO DAILY PRN 02/23/19 Levothyroxine [Synthroid 112 mcg 112 mcg PO DAILY06 02/23/19 (*)] Medical Decision Making ED Course/Re-evaluation: CHIEF COMPLAINT: Psychiatric evaluation HISTORY OF PRESENT ILLNESS: The patient is a 68 y/o female with a history of bipolar disorder and ECT complaining of anxiety and being out of her medications. The patient has a longstanding history of anxiety and several weeks ago went off of her prescribed benzodiazepines. She is taking Seroquel at night and is prescribed a dose of 600 but has been taking up to 800 now that she is no longer taking benzodiazepines. Because of this, she ran out of Seroquel last night. Several days ago she started taking hydroxyzine 10 mg 3 times a day. However, this is not helped her anxiety or insomnia. Last night she was seen in this emergency department for similar complaints. She wasn't given any medications and was discharged home. No fever, headache, body aches, lightheadedness, chest pain, heart palpitations, shortness of breath, cough, abdominal pain, urinary or bowel complaints, numbness, paresthesias. REVIEW OF SYSTEMS: A comprehensive 10 system review of systems is otherwise negative aside from elements mentioned in the history of present illness and medical decision making. PHYSICAL EXAM: General Appearance: Anxious, alert, well hydrated, appropriate, and non-toxic appearing. Head: Atraumatic without scalp tenderness or obvious injury Eyes: Pupils equal, round, reactive to light and accommodation, EOMI, no trauma , no injection. Ears: Clear bilaterally, no perforation, normal landmarks Nose: Atraumatic, no rhinorrhea, clear. Throat: There is no erythema or exudates, no lesions, normal tonsils, mucus membranes moist. Neck: Supple, 2+ carotid upstroke, nontender, no lymphadenopathy. Respiratory: No retractions, no distress, no wheezes, and no accessory muscle use. Lungs are clear to auscultation bilaterally. Cardiovascular: Regular rate and rhythm, no murmurs, rubs, or gallops. Bilateral carotid, radial, dorsalis pedis, and posterior tibial pulses intact. Good capillary refill all extremities. Gastrointestinal: Abdomen is soft, nontender, non-distended, no masses, no rebound, no guarding, no peritoneal signs. Musculoskeletal: Normal active ROM of all extremities, atraumatic. Neurological: Alert, appropriate, and interactive. The patient has normal DTRs and non-focal cranial nerves, motor, sensory, and cerebellar exam. Skin: No rashes, good turgor, no nodules on palpation. Psychiatric: Patient is oriented X 3, there is no agitation, mildly anxious Past medical history: Bipolar, hypothyroid, high cholesterol, anxiety Past surgical history: ECT Family history: Denies Social history: at bedside, lives in [place], retired DIFFERENTIAL DIAGNOSIS: The differential diagnosis for the patient's depression included but was not limited to functional and major depression, situational depression, medication side effect, drugs, and alcohol abuse. MEDICAL DECISION MAKING: The patient is a 68 y/o female with a history of bipolar disorder and ECT presenting voluntarily for anxiety and being out of her medications. She is taking Seroquel at night and is prescribed a dose of 600 but has been taking up to 800 now that she is no longer taking benzodiazepines. She ran out of Seroquel last night. Several days ago she started taking hydroxyzine 10 mg 3 times a day. Last night she was seen in this emergency department for similar complaints. On exam she is anxious and will need a psych eval as her symptoms have not improved since last night. Patient is in no acute distress and is hemodynamically stable. We are awaiting psychiatric team's evaluation. Patient has known history of psychiatric disorders and is here for evaluation. 1mg IV Ativan administered. 1436: I consulted with [facility] regarding this patient. She agrees that this patient is abusing her medications. She will call the psychiatrist to figure out the patient's disposition. 1500: Patient care turned over to Dr. Londono at shift change pending psychiatrist eval. (Toni De Jesus) Other Provider: I assumed care of the patient at 3pm 6:00 p.m.: The patient has been accepted for inpatient psychiatric hospitalization at the [facility] by Dr. Asa Orosco. I have filled out the EMTALA transfer form. (Suraj Londono) - Data Points Laboratory Results: Laboratory Results 02/23/19 10:30 02/23/19 10:30 02/23/19 02/23/19 02/23/19 10:51 10:30 10:30 WBC 8.79 10^3/uL 10^3/uL (3.80-9.50) RBC 4.90 10^6/uL 10^6/uL (4.18-5.33) Hgb 14.9 g/dL g/dL (12.6-16.3) Hct 43.7 % % (38.0-47.0) MCV 89.2 fL fL (81.5-99.8) MCH 30.4 pg pg (27.9-34.1) MCHC 34.1 g/dL g/dL (32.4-36.7) RDW 12.8 % % (11.5-15.2) Plt Count 345 10^3/uL 10^3/uL (150-400) MPV 8.9 fL fL (8.7-11.7) Neut % (Auto) 74.5 % H % (39.3-74.2) Lymph % (Auto) 18.3 % % (15.0-45.0) [place] % (Auto) 5.1 % % (4.5-13.0) Eos % (Auto) 0.5 % L % (0.6-7.6) Baso % (Auto) 0.8 % % (0.3-1.7) Nucleat RBC Rel Count 0.0 % % (0.0-0.2) Absolute Neuts (auto) 6.55 10^3/uL H 10^3/uL (1.70-6.50) Absolute Lymphs (auto) 1.61 10^3/uL 10^3/uL (1.00-3.00) Absolute Monos (auto) 0.45 10^3/uL 10^3/uL (0.30-0.80) Absolute Eos (auto) 0.04 10^3/uL 10^3/uL (0.03-0.40) Absolute Basos (auto) 0.07 10^3/uL 10^3/uL (0.02-0.10) Absolute Nucleated RBC 0.00 10^3/uL 10^3/uL (0-0.01) Immature Gran % 0.8 % % (0.0-1.1) Immature Gran # 0.07 10^3/uL 10^3/uL (0.00-0.10) Sodium 139 mEq/L mEq/L (135-145) Potassium 4.1 mEq/L mEq/L (3.5-5.2) Chloride 103 mEq/L mEq/L (97-110) Carbon Dioxide 25 mEq/l mEq/l (22-31) Anion Gap 11 mEq/L mEq/L (6-14) BUN 13 mg/dL mg/dL (7-23) Creatinine 0.8 mg/dL mg/dL (0.6-1.0) Estimated GFR > 60 Glucose 117 mg/dL H mg/dL (70-100) Calcium 9.7 mg/dL mg/dL (8.5-10.4) Salicylates < 1.0 mg/dL L mg/dL (2.0-20.0) Urine Opiates Screen NEGATIVE (NEGATIVE) Acetaminophen < 10 mcg/mL L mcg/mL (10-30) Urine Barbiturates NEGATIVE (NEGATIVE) Ur Phencyclidine Scrn NEGATIVE (NEGATIVE) Ur Amphetamine Screen NEGATIVE (NEGATIVE) U Benzodiazepines Scrn NEGATIVE (NEGATIVE) Urine Cocaine Screen NEGATIVE (NEGATIVE) U Marijuana (THC) Screen NON-NEGATIVE H (NEGATIVE) Ethyl Alcohol < 10 mg/dL mg/dL (0-10) Medications Given: Discontinued Medications Lorazepam (Ativan) 1 mg PO EDNOW ONE Stop: 02/23/19 10:05 Last Admin: 02/23/19 10:27 Dose: 1 mg Departure - Departure Disposition: [facility] IP Clinical Impression: Bipolar disorder, Suicidal ideation Condition: Good Referrals: Sandy Dunn MD [Primary Care Provider] - As per Instructions Report Scribed for: Toni De Jesus Report Scribed by: Tia Kim Date of Report: 02/23/19 Time of Report: 10:03
[2019-02-23] MEDS ORDERED: LORazepam 1 MG TAB PO ONE (10:04)
[2019-02-23 10:47] LABS: PLATELET COUNT 345 10^3/uL (150-400)
--- NOTE | 2019-02-23 16:31 | ASMTTLCEVL ---
TLC Evaluation - Basic Information Evaluation Start Date and 02/23/2019 02:30 PM Time Hospital Status Answers: Voluntary Patient statement Notes: " I am bipolar and I had an anxiety attack and I ran out of my meds. I couldn't refill. I couldn't sleep in 24 hours. Last week, I took more than I should have so I ran out. The doctor gave me an ativan and that really helped me calm down some." Narrative Notes: Pt is a 68 yo female with a hx of bipolar disorder and ECT treatments, complaining of anxiety and being out of her medications. Pt has a hx longstanding history of anxiety an several weeks ago went off her benzodiazepines. Pt is taking seroquel at night, 600mg, but is taking up to 800mg now that she is no longer taking benzodiazepines. Because of this, she ran out of seroquel last night. Pt recently started hydroxizine, 10mg , 3times a day but she reports it is not helping her anxiety or insomnia. Last night, pt was seen in this emergency department for similar complaints. Pt was not given any medications and was discharged home. Pt reports she is feeling increased anxiety and depression. Pt reports she has suicidal thoughts and stated, " Sometimes I lie in bed and journal and I'll read it. " I've lived long enough, I wanna or sometimes I'm in my car, I can smash it but then I think but Bailee will have a baby someday and I need to stay alive for that. But sometimes I wish I were . I was diagnosed with bipolar disorder late in life and it's really hard sometimes." Pt stated she has ran out of her meds and stated she has been abusing her seroquel. Pt stated her psychiatrist prescribes her 10 pills of 1mg ativan for a month but she ran out 1 week ago. Pt stated she called the pharmacy to refill it but her psychiatrist is out of town until next Wednesday so she is unable to refill at this time. Pt stated, " My daughter is a therapist and is really against me taking ativan but it's not her body. Ativan helps me more than anything else. I was going to see if I can get that." Pt stated both her therapist and daughter are encouraging her to start doing volunteer work to help with her depression and anxiety. Pt stated she will be seeing a new therapist at [facility], Vijaya Stewart, and stated, " I'm hoping once I start working with her, I won't need to use ativan as much." Diagnosis History Notes: Bipolar Disorder Prior suicide attempts Notes: Pt stated she tried to kill herself one time in her 40s after her mother had . pt stated she took 27 diazepam tablets. according to eps report, pt took 27 of her risperdal when she was 48 or 51. Prior hospitalizations Notes: Pt has had ECT treatments in 2015. : Pt was hospitalized at [facility] f05/2016 and 02/27/16 to 03/09/16 and received ECT treatments. Pt reported numerous hospitalizations for depression and gage and cannot recall all of her hospitalizations. Pt was hospitalized in April of 2014, which pt was hospitalized for gage and delusions of grandiosity. Pts previous hospitalization was in November 2013 at [facility] for hypomania and delusions and [address] [place] [address] in 11/2013. pt has been in treatment with [facility] since 02/2003. Treatment Responses Notes: Pt has not been hospitalized since 2015. History of violence Notes: Pt denies nay HI Therapist: Vijaya Stewart Psychiatrist: Dr. Conti Medications (name, dosage, route, freq uency) Notes: levothyronxine 88 mcg po daily. Seroquel 600mg, 400mg and 200mg Ativan 1mg Hydroxizyine 10mg, TID Allergies/Reaction Notes: NKa Sleep Notes: Pt reported she hasn't slept since Wednesday. Appetite Notes: Pt stated she has had a loss of appetite and has been eating less. Medical/Surgical history Notes: Pt reported no significant medical hx. Substance use history (frequency, intensity, his tory, duration) Notes: Per TLC eval on 06/26/16, Pt has a past hx of drinking up to 10 shots of vodka a day. Pt reported she has been sober for approximately the past 3 months. Pt denied all other substances. Pt currently states, " I drink once in a blue de luna." Pt stated, " I've given up smoking pot. No, I don' do any drugs. I don't know what my blood tests will show though." Pt's utox was positive for marijuanna. Family composition Notes: Pt has a daughter and lives with domestic partner Dejuan. Family psychiatric/substance abuse history Notes: Pt reported no family hx of psychiatric illness and no family hx of substance abuse. Developmental history Notes: Per previous tlc record, pt states " I was raised in a loving Jew home". Abuse concerns Answers: None Marital status/children Notes: Pt has a partner, Dejuan; a daughter who lives here in [place] and 1 boc who lives in [place]. Living situation Notes: Pt lives in [place] with her partner Dejuan. Sexual history/orientation Notes: Pt identifies as heterosexual Peer support/family strengths Notes: Pt reports having a good support system in place. Education level/history Notes: Pt has a college degree. Work history Notes: Retired teacher. Notes: None Legal Notes: None reported. Moravian/Spiritual Notes: None that would interfere with tx. Leisure Notes: Pt enjoys skiing, walking, visiting friends and playing with her two dogs. Patient's strengths Answers: Intelligent (Please select at least TWO strengths): Motivated for Treatment Supportive Family Willingness TLC Evaluation - Mental Status Exam Appearance: Answers: Clean Eye Contact: Answers: Good/Direct Mood: Answers: Sad Affect: Answers: Anxious Distracted Behavior: Answers: Cooperative Anxious Speech: Answers: Relevant Logical Clear Thought Process: Answers: Organized Oriented Alert Distracted Intact Insight: Answers: Poor Judgement: Answers: Poor Depression Answers: Hopelessness Signs/Symptoms: Sad Mood Anxiety Signs/Symptoms Answers: Generalized Anxiety Panic Attacks Hallucinations: Answers: None Pt reported to have Answers: No suicidal/self-injuring ideation/behavior? Pt reported to be making Answers: Yes suicidal/self-injuring threats? Pt reported to have Answers: No aggression/assault ideation/behavior? Pt reported to be making Answers: No aggression/assault threats? Ideation/behavior is Answers: No chronic? Patient has a specific Answers: Yes plan? Ideation involves Answers: Yes serious/lethal intent? Ideation has Answers: No delusional/hallucinatory content? History of Answers: Yes aggressive/assaultive ideation, behavior, or threats? History of serious Answers: No physical harm to self/others while in treatment setting? TLC Evaluation - Suicide/Homicide Risk Suicide Risk Factors: Answers: < 20 or > 40 Years of Age Anxiety/Panic, Severe Bipolar Disorder Prior Suicide Attempt(s) Current Suicidal Answers: Yes Ideation? Current Suicide Ideation Pt reports having thoughts of wanting to . Frequency: Current Suicidal Ideation Answers: Yes in the Past 48 Hours? Current Suicidal Ideation Answers: Yes in the Past Month? Current Suicidal Answers: No Ideation, Worst Ever? Suicide Internal Answers: Absence of Psychosis Protective Factors: Suicide External Answers: Responsibility to Protective Factors: Children Ranking of patient's Answers: Moderate suicidal risk: Ranking of patient's Answers: Low homicidal risk: TLC Evaluation - Wrap-up AXIS I Diagnosis (include DSM-V and ICD-10 codes), must also be entered in [employer], which is the source of truth. Notes: Bipolar I Disorder, severe 296.43 (F31.13) Generalized Anxiety Disorder 300.02 (F41.1) Per directive and order from [facility] on-call psychiatrist, Asa Orosco MD, Dr. Orosco agreed to accept pt for voluntary admission to [facility]. Evaluation End Date and 02/23/2019 04:30 PM Time (HH:MM): Date Signed: 02/23/2019 04:29 PM Electronically Signed By:Maegan Gardiner
--- NOTE | 2019-02-23 16:31 | ASMTTCLDSP ---
TLC Discharge Disposition Disposition: Answers: Admit Discharge Concerns/Recommendations: Notes: Per directive and order from [facility] on-call psychiatrist, Asa Orosco MD, Dr. Orosco agreed to accept pt for voluntary admission to [facility]. Was patient given the Answers: Yes Inpatient Behavioral Health Prohibited Belongings List while in the ED? For inpatient Asa Orosco MD admission, the following psychiatrist agreed to accept patient for admission to Behavioral Health ([facility]): Date Signed: 02/23/2019 04:31 PM Electronically Signed By:Maegan Gardiner
[2019-02-23] MEDS ORDERED: ACETAMINOPHEN 325 MG TAB PO PRN (19:00)
[2019-02-23] MEDS ORDERED: NICOTINE POLACRILEX 2 MG GUM B PRN (19:00)
[2019-02-23] MEDS ORDERED: MAG HYDROX/AL HYDROX/SIMETH 30 ML UDCUP PO PRN (19:00)
[2019-02-23] MEDS ORDERED: MAGNESIUM HYDROXIDE 30 ML UDCUP PO PRN (19:00)
[2019-02-23] MEDS: LORazepam 1 MG TAB PO SCH ×2 (19:23→21:04)
[2019-02-23] MEDS: QUEtiapine FUMARATE 300 MG TAB PO SCH (21:01)
[2019-02-24] MEDS: LEVOTHYROXINE 112 MCG TAB PO SCH (05:34)
[2019-02-24] MEDS: LORazepam 1 MG TAB PO SCH ×3 (08:44→20:52)
[2019-02-24] MEDS: ATORVASTATIN CALCIUM 20 MG TAB PO SCH (08:44)
--- NOTE | 2019-02-24 15:27 | PDGENHP ---
History and Physical - Chief Complaint anxiety - History of Present Illness 68 yo female with h/o hypothyroidism, gerd, bipolar disorder and anxiety presented to the ED with increased anxiety symptoms. She says her daughter, who is a therapist, wanted her to stop her benzodiazepines and she did. However , she then had rapidly escalating anxiety and became so distraught, she came to the ED. In the ED, she received a dose of Ativan and said her symptoms quickly began to mahesh. She denies suicidality. No hallucinations. Her thyroid dose was recently adjusted by her PCP during a recent physical. She has otherwise been in good health. History Information - Allergies/Home Medication List Allergies/Adverse Reactions: No Known Allergies Allergy (Verified 02/23/19 09:38) Home Medications: QUEtiapine FUMARATE [Seroquel 300mg (*)] 600 mg PO HS 11/29/17 [Last Taken 02/22] Atorvastatin Calcium [Lipitor 20 mg (*)] 20 mg PO DAILY 02/23/19 [Last Taken ] LORazepam [Ativan (*)] 1 mg PO DAILY PRN 02/23/19 [Last Taken 02/23/19] Levothyroxine [Synthroid 112 mcg (*)] 112 mcg PO DAILY06 02/23/19 [Last Taken ] I have personally reviewed and updated: family history, medical history, social history, surgical history - Past Medical History Additional medical history: Recurrent cystitis. Bipolar with history of numerous ECT treatments. Hypothyroidism. Hyperlipidemia - Surgical History Reports: no pertinent surgical hx - Family History Additional family history: Sister with fatal pulmonary embolism, mother with breast cancer, father with congestive heart failure in his 80s - Social History Smoking Status: Never smoked Additional social history: Independent in her ADLs comma no recent reduction in exercise tolerance, recently return from a trip to [place] 2 weeks ago Review of Systems Review of Systems: ROS: 10pt was reviewed & negative except for what was stated in HPI & below Physical Exam Physical Exam: Temp Pulse Resp BP Pulse Ox 36.3 C 120 H 18 98/58 L 93 02/24/19 06:00 02/24/19 06:00 02/24/19 06:00 02/24/19 06:00 02/24/19 06:00 Constitutional: no apparent distress Eyes: PERRL Ears, Nose, Mouth, Throat: moist mucous membranes, other (rhinorrhea) Cardiovascular: regular rate and rhythym Respiratory: no respiratory distress, clear to auscultation Gastrointestinal: normoactive bowel sounds, soft, non-tender abdomen Skin: warm Musculoskeletal: full muscle strength Neurologic: AAOx3 Psychiatric: interacting appropriately Lab Data & Imaging Review 02/23/19 10:30 02/23/19 10:30 WBC 8.79 10^3/uL (3.80-9.50) 02/23/19 10:30 RBC 4.90 10^6/uL (4.18-5.33) 02/23/19 10:30 Hgb 14.9 g/dL (12.6-16.3) 02/23/19 10:30 Hct 43.7 % (38.0-47.0) 02/23/19 10:30 MCV 89.2 fL (81.5-99.8) 02/23/19 10:30 MCH 30.4 pg (27.9-34.1) 02/23/19 10:30 MCHC 34.1 g/dL (32.4-36.7) 02/23/19 10:30 RDW 12.8 % (11.5-15.2) 02/23/19 10:30 Plt Count 345 10^3/uL (150-400) 02/23/19 10:30 MPV 8.9 fL (8.7-11.7) 02/23/19 10:30 Neut % (Auto) 74.5 % (39.3-74.2) H 02/23/19 10:30 Lymph % (Auto) 18.3 % (15.0-45.0) 02/23/19 10:30 [place] % (Auto) 5.1 % (4.5-13.0) 02/23/19 10:30 Eos % (Auto) 0.5 % (0.6-7.6) L 02/23/19 10:30 Baso % (Auto) 0.8 % (0.3-1.7) 02/23/19 10:30 Nucleat RBC Rel Count 0.0 % (0.0-0.2) 02/23/19 10:30 Absolute Neuts (auto) 6.55 10^3/uL (1.70-6.50) H 02/23/19 10:30 Absolute Lymphs (auto) 1.61 10^3/uL (1.00-3.00) 02/23/19 10:30 Absolute Monos (auto) 0.45 10^3/uL (0.30-0.80) 02/23/19 10:30 Absolute Eos (auto) 0.04 10^3/uL (0.03-0.40) 02/23/19 10:30 Absolute Basos (auto) 0.07 10^3/uL (0.02-0.10) 02/23/19 10:30 Absolute Nucleated RBC 0.00 10^3/uL (0-0.01) 02/23/19 10:30 Immature Gran % 0.8 % (0.0-1.1) 02/23/19 10:30 Immature Gran # 0.07 10^3/uL (0.00-0.10) 02/23/19 10:30 Sodium 139 mEq/L (135-145) 02/23/19 10:30 Potassium 4.1 mEq/L (3.5-5.2) 02/23/19 10:30 Chloride 103 mEq/L (97-110) 02/23/19 10:30 Carbon Dioxide 25 mEq/l (22-31) 02/23/19 10:30 Anion Gap 11 mEq/L (6-14) 02/23/19 10:30 BUN 13 mg/dL (7-23) 02/23/19 10:30 Creatinine 0.8 mg/dL (0.6-1.0) 02/23/19 10:30 Estimated GFR > 60 02/23/19 10:30 Glucose 117 mg/dL (70-100) H 02/23/19 10:30 Calcium 9.7 mg/dL (8.5-10.4) 02/23/19 10:30 TSH 10.600 uIU/mL (0.465-4.680) H 02/24/19 10:30 Salicylates < 1.0 mg/dL (2.0-20.0) L 02/23/19 10:30 Urine Opiates Screen NEGATIVE (NEGATIVE) 02/23/19 10:51 Acetaminophen < 10 mcg/mL (10-30) L 02/23/19 10:30 Urine Barbiturates NEGATIVE (NEGATIVE) 02/23/19 10:51 Ur Phencyclidine Scrn NEGATIVE (NEGATIVE) 02/23/19 10:51 Ur Amphetamine Screen NEGATIVE (NEGATIVE) 02/23/19 10:51 U Benzodiazepines Scrn NEGATIVE (NEGATIVE) 02/23/19 10:51 Urine Cocaine Screen NEGATIVE (NEGATIVE) 02/23/19 10:51 U Marijuana (THC) Screen NON-NEGATIVE (NEGATIVE) H 02/23/19 10:51 Ethyl Alcohol < 10 mg/dL (0-10) 02/23/19 10:30 Assessment & Plan Assessment: Bipolar disorder (Acute) - presented with increased anxiety, decompensated since stopping her meds. Now more stable back on TID Ativan and Seroquel. -further management per psych team Hypothyroidism - TSH elevated at 10, though will defer changing levothyroxine dose as pt states this was recently adjusted by her PCP -recheck TSH as outpt in 4-6 weeks Hyperlipidemia - cont statin Allergic rhinitis - offered anti-histamine, pt declined -will add zyrtec prn in case her symptoms worsen
[2019-02-24] MEDS ORDERED: CETIRIZINE 10 MG TAB PO PRN (16:03)
--- NOTE | 2019-02-24 19:28 | BAPA ---
[f rep st] ADMISSION PSYCHIATRIC ASSESSMENT DATE OF SERVICE: 02/24/2019 REASON FOR ADMISSION: Patient is a 68-year-old female known to us from previous hospitaliz ations. She has a history of bipolar disorder and treatment, non adherence relating and resulting in relapses. She presented to the emergency department twice in 24 hours, requesting admission because she was out of Seroquel. She was referred initially back to [facility] in order to get refills, but she told them that she was decompensating and had been taking excessive amounts of her S eroquel due to this. They felt like she needed to be in the hospital. She re-presented requesting h ospitalization. She stated she felt like she was out of control and having manic symptoms and theref ore needed to be hospitalized. Today, she states that she continues to feel out of control and then wonders if she needs a medicatio n change. She states that her Seroquel was increased recently, though she overtook it over the cours e of several days and did not have enough to continue to take it. Her main complaints are racing tho ughts, impulsive behaviors, labile mood and decreased sleep. I had reviewed with her ongoing regimen . She states that she would actually like to continue the Seroquel, but wants to continue the Ativan as well. She states that efforts to get rid of the Ativan recently led to withdrawal symptoms and t he overall decompensation. PAST PSYCHIATRIC HISTORY: Significant for numerous previous admissions. She was last in our hospita for psychiatric treatments in May of 2016, and before that was February of 2016, and November 2013. The patient is followed by Dr. Conti at [facility]. ALLERGIES: No known medical allergies. CURRENT MEDICATIONS: Include atorvastatin 20 mg daily, Zyrtec 10 mg p.r.n., levothyroxine 112 mcg da gurinder, Lorazepam 1 mg twice daily to three times daily, quetiapine 600 mg at bedtime. PAST MEDICAL HISTORY: Hypothyroidism, hypercholesterolemia. SOCIAL HISTORY: Patient lives with her partner in [place]. She is retired. She has several childre n to whom she is close to her and are supports. Her primary support is her daughter who is a therapi st at [facility]. The patient is active in treatment. [facility] is a prima ry social contact. ADMISSION LABORATORY: CBC is normal. Serum chemistries show no significant abnormalities. TSH is h igh at 10.6. Urine drug screen is positive for marijuana. MENTAL STATUS EXAMINATION: Reveals an adequately groomed, healthy-appearing female. She i s pleasant, cooperative, somewhat animated but not elevated. Her affect is otherwise euthymic stable and appropriate. Her mood is described as "good." Her thought process is linear and goal directed. Her thought content reveals no evidence of psychosis. She is alert and oriented to person, place, time, and situation. Her sensorium is clear. She denies any thoughts of suicide, homicide, or viole nce. Her insight and judgment appear to be fair. IMPRESSION: Bipolar 1 disorder, most recent episode mixed, moderate to severe; chronic illness, recu rrent illness, treatment nonadherence, possible benzodiazepine use disorder. DISCUSSION: The patient is a 68-year-old female known to me from previous admissions. She appears slightly decompensated related to running out of her medications. She states that she ran o ut of her medications because she was not doing well, was over taking the Seroquel. We will restart this at 600 mg and monitor. They believe she had some minor benzodiazepine withdrawal in the ER, so they placed her on 2 mg three times daily of lorazepam and she looks good today. PLAN: 1. Admit to the [facility] inpatient unit on an M1 hold. 2. Medications as above. 3. Work with the patient with discharge planning. 4. Estimated length of stay is 3-5 days. /[id number]/MODL
[2019-02-24] MEDS: QUEtiapine FUMARATE 300 MG TAB PO SCH (20:51)
[2019-02-25] MEDS: LEVOTHYROXINE 112 MCG TAB PO SCH (06:56)
--- NOTE | 2019-02-25 08:20 | ASMTBHMTP ---
Master Treatment Plan Master Treatment Plan Answers: Mood Instability without for: Psychosis Date: 02/25/2019 Diagnosis on Admission: Bipolar I Disorder, severe 296.43 (F31.13) Expected length of stay: 3-5 Reason for admission: Notes: Pt is a 68 yo female with a hx of bipolar disorder and ECT treatments, complaining of anxiety and being out of her medications. Pt has a hx longstanding history of anxiety an several weeks ago went off her benzodiazepines. Pt is taking seroquel at night, 600mg, but is taking up to 800mg now that she is no longer taking benzodiazepines. Because of this, she ran out of seroquel last night. Pt recently started hydroxizine, 10mg , 3times a day but she reports it is not helping her anxiety or insomnia. Last night, pt was seen in this emergency department for similar complaints. Pt was not given any medications and was discharged home. Pt reports she is feeling increased anxiety and depression. Pt reports she has suicidal thoughts and stated, " Sometimes I lie in bed and journal and I'll read it. " I've lived long enough, I wanna or sometimes I'm in my car, I can smash it but then I think but Bailee will have a baby someday and I need to stay alive for that. But sometimes I wish I were . I was diagnosed with bipolar disorder late in life and it's really hard sometimes." Pt stated she has ran out of her meds and stated she has been abusing her seroquel. Pt stated her psychiatrist prescribes her 10 pills of 1mg ativan for a month but she ran out 1 week ago. Pt stated she called the pharmacy to refill it but her psychiatrist is out of town until next Wednesday so she is unable to refill at this time Patient's stated presenting problems: Notes: "I had anxiety attack. My meds weren't refilled and my doctor was out of town". Patient's goals for treatment: Notes: "To get stabilized on my medications". Patient's strengths: Notes: "I'm a good friend, I'm smart". Identify supports outside of hospital: Notes: "Partner, daughter, brother, therapist, doctor". Discharge criteria: Notes: Ct. will demonstrate more stable mood by discharge. Initial disposition plan/considerations: Notes: Ct. will participate in unit activities and engage in planning her discharge. Master Treatment Plan Required Signatures Psychiatrist signature: Answers: Psychiatrist: RN on-shift signature: Answers: RN: Patient signature: Answers: Patient: Date Signed: 02/25/2019 08:19 AM Electronically Signed By:Jesenia Sahni.ADMINISTRATIVE SERVICES DIRECTOR
--- NOTE | 2019-02-25 08:33 | ASMTCMCOM ---
CM Note CM Note Notes: Information did not save correctly in MTP note. Attached is the correct information: Diagnosis Bipolar I Disorder, severe 296.43 (F31.13) Generalized Anxiety Disorder 300.02 (F41.1) Reason for admission: "Pt is a 68 yo female with a hx of bipolar disorder and ECT treatments, complaining of anxiety and being out of her medications. Pt has a hx longstanding history of anxiety an several weeks ago went off her benzodiazepines. Pt is taking seroquel at night, 600mg, but is taking up to 800mg now that she is no longer taking benzodiazepines. Because of this, she ran out of seroquel last night. Pt recently started hydroxizine, 10mg , 3times a day but she reports it is not helping her anxiety or insomnia. Last night, pt was seen in this emergency department for similar complaints. Pt was not given any medications and was discharged home. Pt reports she is feeling increased anxiety and depression. Pt reports she has suicidal thoughts and stated, " Sometimes I lie in bed and journal and I'll read it. " I've lived long enough, I wanna or sometimes I'm in my car, I can smash it but then I think but Bailee will have a baby someday and I need to stay alive for that. But sometimes I wish I were . I was diagnosed with bipolar disorder late in life and it's really hard sometimes." Pt stated she has ran out of her meds and stated she has been abusing her seroquel. Pt stated her psychiatrist prescribes her 10 pills of 1mg ativan for a month but she ran out 1 week ago. Pt stated she called the pharmacy to refill it but her psychiatrist is out of town until next Wednesday so she is unable to refill at this time". Ct. stated presenting problem: "I had anxiety attack. My meds. weren't refill and my doctor was out of town". Ct.'s goals for treatment: "To get stabilized on meds." Ct.'s strengths: "I'm a good friend, I'm smart". Support outside the hospital: "My partner, daughter, brother, therapist and doctor". Discharge criteria: Ct. will demonstrate more stable mood by discahrge. Disposition plan: Ct. will partcipate in unit activities and will engage in planning for her discharge. Attending Pasychiatrist RN Ct. Date Signed: 02/25/2019 08:32 AM Electronically Signed By:Jesenia Sahni.PHOTOGRAPHIC PROCESSOR
[2019-02-25] MEDS: ATORVASTATIN CALCIUM 20 MG TAB PO SCH (08:54)
[2019-02-25] MEDS: LORazepam 1 MG TAB PO SCH ×4 (08:54→21:16)
--- NOTE | 2019-02-25 09:31 | PDMN ---
Medical Necessity Medical necessity: [id number], Bipolar Disorders, Adult: Inpatient Care, 4 days : 68 yo w/ bipolar 1 d/o, most recent episode mixed, mod to severe, poss benzodiazepine use d/o, on M1 hold, admit IP status to BEH unit.
--- NOTE | 2019-02-25 10:17 | SOAPPROG ---
SOAP Progress Note Assessment/Plan: Assessment: per MD checkout: 68yo CF with long hx BMD and histrionic personality. presented to ED b/c ran out of meds and has been doing poorly recently. Restarted on Seroquel. 02/25/19 10:14 slept 10+hr last pm no physical complaints. denied med s/e. pt is voluntary. no behavioral issues on unit. Plan: continue current meds Has [facility] appt with Dr. Huerta on 02/27 at 9:45a. and therapist on 06/01. Voluntary. Objective: Vital Signs Temp Pulse Resp BP Pulse Ox 36.5 C 95 14 106/70 91 L 02/25/19 06:00 02/25/19 06:00 02/25/19 06:00 02/25/19 06:00 02/25/19 06:00 02/24/19 02/25/19 02/26/19 05:59 05:59 05:59 Intake Total 0 Balance 0 ICD10 Worksheet Patient Problems: Problems Problem Status Onset Bipolar disorder Acute Suicidal ideation Acute Abnormal breathing sounds Acute Cannabis abuse Acute Dyspnea Acute Pneumonia Acute Severe major depression Acute
[2019-02-25] MEDS: QUEtiapine FUMARATE 300 MG TAB PO SCH (21:08)
[2019-02-26] MEDS: LEVOTHYROXINE 112 MCG TAB PO SCH (05:25)
[2019-02-26] MEDS: LORazepam 1 MG TAB PO SCH (05:25)
[2019-02-26] MEDS: ATORVASTATIN CALCIUM 20 MG TAB PO SCH (08:10)
--- NOTE | 2019-02-26 11:47 | SOAPPROG ---
SOAP Progress Note Assessment/Plan: Assessment: per Dr. Orosco checkout: 68yo CF with long hx BMD and histrionic personality. presented to ED b/c ran out of meds and has been doing poorly recently. Restarted on Seroquel. 02/25/19 10:14 slept 10+hr last pm no physical complaints. denied med s/e. pt is voluntary. no behavioral issues on unit. Plan: continue current meds: seroquel 600mg, ativan 1mg tid Voluntary. 02/26/19 11:47 slept 10hr tachycardia this AM. P 156. then recheck P 144. denied physical complaints to staff using Ativan 1mg bid prn, took one at 5am declined hs dose ativan b/c didn't feel she needed more than 2//day. reports outpt dose 1mg/d recently decr to 10 tabs/mo and this was not working for her. utox + THC. TSH 10.6 on admit. reported recent outpt incr in thyroid medication by pcp per hx, dtr encouraged pt to d/c BZDs which contributed to incr anxiety [employer] as well. recheck P103, BP 119/79. feels well. eating/drinking well, attending group. relaxed. glad her recheck of VS decreased to WNL met w/pt with H present w/pt consent. pt expressed need to stay on Lorazepam, sujata w/incr anxiety situation upcoming where her H of 15yr will be moving to [facility] [place] for 6mo starting March. feels this is a big stressor pt will try to keep self busy with programming at [facility] but is not happy with H decision. "it's crazy". of 15yr expressed clear frustration with pt, feeling manipulated by her behaviors she attributes to her illness, noting every time he goes out of town she gets more anxious, overtakes meds and runs out early apparently resulting in some type of crisis. goes for 3-10 days. 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 H left somewhat frustrated when pt became defensive. stated he'd be back at dinner for visiting. pt reports he too can be frustrating to have around and he dismisses her BMD so this is frustrating for her. part of her will be glad for him to leave for 6mo MSE: cooperative, good ec, nml speech rate/vol. neatly dressed/kempt. nml pma. mood "I'm okay, ready to go home soon", affect constricted but appropriate to content of interview. tp/tc- linear, reality based, denied any ah/vh or any SI or thoughts to harm others. no evid of psychosis or thought d/o. cogn intact. PLAN: 1. continue meds seroquel 600mg hs 2. incr VS to qshift and monitor, check orthostatic VS and manual pulse, encourage fluids. denies any SOB/CP 3. change Ativan to 0.5mg TID with meals 4. Has [facility] appt with Dr. Huerta on 02/27 at 9:45a. and therapist on 06/01. 5. States she attends programming at [facility] daily, continue do do so 6. Indicates dtr not supportive of her taking any BZD and there may be some concerns for misuse. see below. 7. Couples therapy could be helpful 8. pt is vol. Agreeable to d/c to MD appt in AM. states MD will be reviewing meds anyway, seems she will not need Rx. Pt is felt to be low acute risk and stable for discharge in AM as noted. *given reported hx of overtaking medications as prns when more anxious, and then running out early, and also in order to support appropriate compliance with BZD she feels she needs, recommend consider having meds dispensed in blister package thru [facility]. or 1-2 weeks at a time. CC will suggest. Objective: Vital Signs Temp Pulse Resp BP Pulse Ox 36.6 C 144 H 14 116/73 96 02/26/19 06:00 02/26/19 06:00 02/26/19 06:00 02/26/19 06:00 02/26/19 06:00 - Time Spent With Patient Time Spent With Patient: 40min - Pending Discharge Pending Discharge Within 24 Hours: Yes Pending Discharge Date: 02/28/19 Pending Discharge Time: 11:00 ICD10 Worksheet Patient Problems: Problems Problem Status Onset Bipolar disorder Acute Suicidal ideation Acute Abnormal breathing sounds Acute Cannabis abuse Acute Dyspnea Acute Pneumonia Acute Severe major depression Acute
[2019-02-26] MEDS: LORazepam 0.5 MG TAB PO SCH (17:21)
[2019-02-26] MEDS: QUEtiapine FUMARATE 300 MG TAB PO SCH (21:36)
[2019-02-27 05:34] VITALS: BP 111/67
[2019-02-27] MEDS: LEVOTHYROXINE 112 MCG TAB PO SCH (05:35)
[2019-02-27] MEDS: ATORVASTATIN CALCIUM 20 MG TAB PO SCH (08:00)
[2019-02-27] MEDS: LORazepam 0.5 MG TAB PO SCH (08:00)
== END 2019-02-27 09:07 | disposition home or self-care (01) | DRG 885 ==
LOC: BBEH 18:20
PROVIDERS: ADMIT Hospitalist; ATTEND Psychiatry & Neurology Psychiatry
DX: F31.63 Bipolar disorder, current episode mixed, severe, without psychotic features (principal); F41.9 Anxiety disorder, unspecified; E03.9 Hypothyroidism, unspecified; E78.5 Hyperlipidemia, unspecified; J30.9 Allergic rhinitis, unspecified
CPT/HCPCS: 80305; G0480